=== PATIENT | male | born 1965 | race American Indian/Alaskan Native ===

== ENCOUNTER 2017-09-12 03:27 | Emergency (ER) | payer MEDICAID ==
[2017-09-12 03:27] VITALS: BMI 34.2
[2017-09-12 03:40] VITALS: BP 112/72; PULSE 89; RESP 22; TEMP 98.7; O2SAT 98
--- NOTE | 2017-09-12 04:07 | C.PDOC ---
History Of Present Illness 52 year old male presents to the ED for evaluation of left hip pain which began around 2 hours prior to arrival. Patient states he was walking up the stairs when the banister broke and caused him to fall onto his left side. Patient reports feeling pain when adding pressure to his left leg. He denies head injury , LOC, extremity numbness/weakness. Time Seen by Provider: 09/12/17 03:46 Chief Complaint (Nursing): Hip Pain History Per: Patient History/Exam Limitations: no limitations Onset/Duration Of Symptoms: Hrs (2) Current Symptoms Are (Timing): Still Present - Hip Description Of Injury: Fell Past Medical History Reviewed: Historical Data, Nursing Documentation, Vital Signs Vital Signs: Last Vital Signs Temp 98.7 F 09/12/17 03:33 Pulse 89 09/12/17 03:33 Resp 22 09/12/17 03:33 BP 112/72 09/12/17 03:33 Pulse Ox 98 09/12/17 04:07 - Medical History PMH: No Chronic Diseases Surgical History: No Surg Hx Family History: States: Unknown Family Hx - Social History Hx Alcohol Use: No Hx Substance Use: No - Immunization History Hx Tetanus Toxoid Vaccination: No Hx Influenza Vaccination: Yes (01/2017) Hx Pneumococcal Vaccination: No Review Of Systems Musculoskeletal: Positive for: Other (left hip pain ) Neurological: Negative for: Weakness, Numbness Physical Exam - Physical Exam Appears: Non-toxic, No Acute Distress Skin: Normal Color, Warm, Dry Head: Atraumatic, Normacephalic Eye(s): bilateral: Normal Inspection Oral Mucosa: Moist Neck: Supple Chest: Symmetrical, No Deformity, No Tenderness Cardiovascular: Rhythm Regular Respiratory: Normal Breath Sounds, No Accessory Muscle Use Gastrointestinal/Abdominal: Soft, No Tenderness, No Guarding, No Rebound Extremity: No Normal ROM (limited in left hip, secondary to pain ), Tenderness ( to left hip ), No Calf Tenderness (left ), Capillary Refill (less than 2 seconds ), No Other (left ankle tenderness, forshortening or external rotation of left lower extremity ) Extremity: Right: Atraumatic, Hips Non-Tender Pulses: Left Femoral: Normal, Right Femoral: Normal, Left Dorsalis Pedis: Normal , Right Dorsalis Pedis: Normal Neurological/Psych: Oriented x3, Normal Speech, Normal Cognition, Normal Motor, Normal Sensation Gait: Unable To Assess ED Course And Treatment O2 Sat by Pulse Oximetry: 98 (on RA) Pulse Ox Interpretation: Normal Medical Decision Making Medical Decision Making: Impression: 52 year old male with left hip pain s/p fall Plan: * Hip XR * Toradol IM * reassess and disposition Progress: Hip XR ordered and reviewed. Toradol IM given. Disposition - Disposition Forms: [facility] (Latvian) - Scribe Statement The provider has reviewed the documentation as recorded by the Scribe (Catie Penn) All medical record entries made by the Scribe were at my direction and personally dictated by me. I have reviewed the chart and agree that the record accurately reflects my personal performance of the history, physical exam, medical decision making, and the department course for this patient. I have also personally directed, reviewed, and agree with the discharge instructions and disposition.
--- NOTE | 2017-09-12 04:18 | C.PDOC ---
History Of Present Illness 52 year old male presents to the ED for evaluation of left hip pain which began around 2 hours prior to arrival. Patient states he was walking up the stairs when the banister broke and caused him to fall onto his left side. Patient reports feeling pain when adding pressure to his left leg. He denies head injury , LOC, neck pain, extremity numbness/weakness. Time Seen by Provider: 09/12/17 03:46 Chief Complaint (Nursing): Hip Pain History Per: Patient History/Exam Limitations: no limitations Onset/Duration Of Symptoms: Hrs (2) Current Symptoms Are (Timing): Still Present - Hip Description Of Injury: Fell Past Medical History Reviewed: Historical Data, Nursing Documentation, Vital Signs Vital Signs: Last Vital Signs Temp 98.7 F 09/12/17 03:33 Pulse 89 09/12/17 03:33 Resp 22 09/12/17 03:33 BP 112/72 09/12/17 03:33 Pulse Ox 98 09/12/17 06:50 - Medical History PMH: No Chronic Diseases Surgical History: No Surg Hx Family History: States: Unknown Family Hx - Social History Hx Alcohol Use: No Hx Substance Use: No - Immunization History Hx Tetanus Toxoid Vaccination: No Hx Influenza Vaccination: Yes (01/2017) Hx Pneumococcal Vaccination: No Review Of Systems Cardiovascular: Negative for: Chest Pain Respiratory: Negative for: Cough Musculoskeletal: Positive for: Other (left hip pain ). Negative for: Back Pain Skin: Negative for: Bruising Neurological: Negative for: Weakness, Numbness Physical Exam - Physical Exam Appears: Non-toxic, No Acute Distress Skin: Normal Color, Warm, Dry Head: Atraumatic, Normacephalic Eye(s): bilateral: Normal Inspection Oral Mucosa: Moist Neck: Supple Chest: Symmetrical, No Deformity, No Tenderness Cardiovascular: Rhythm Regular Respiratory: Normal Breath Sounds, No Accessory Muscle Use Gastrointestinal/Abdominal: Soft, No Tenderness, No Guarding, No Rebound Extremity: No Normal ROM (limited in left hip, secondary to pain ), Tenderness ( to left hip ), No Calf Tenderness (left), Capillary Refill (less than 2 seconds ), No Other (left ankle tenderness, forshortening or external rotation of left lower extremity ) Extremity: Right: Hips Non-Tender Pulses: Left Femoral: Normal, Right Femoral: Normal, Left Dorsalis Pedis: Normal , Right Dorsalis Pedis: Normal Neurological/Psych: Oriented x3, Normal Speech, Normal Cognition, Normal Sensation Gait: Unable To Assess ED Course And Treatment O2 Sat by Pulse Oximetry: 98 (on RA) Medical Decision Making Medical Decision Making: Impression: 52 year old male with left hip pain s/p fall Plan: Hip XR Toradol IM reassess and disposition Progress: Hip XR ordered and reviewed. Toradol IM given. 0545 no fx noted on xray. pt less uncomfortable after toradol. pt instructed in crutch use. d/c home with ortho and med clinic f/u Disposition Counseled Patient/Family Regarding: Studies Performed, Diagnosis, Need For Followup, Rx Given - Disposition Referrals: Melissa Natarajan MD [Staff Provider] - [facility] [Outside] Disposition: HOME/ ROUTINE Disposition Time: 06:06 Condition: IMPROVED Additional Instructions: Please use crutches to avoid full weigth bearing on left leg. Take Naproxen ( with food) as prescribed for pain. Take muscle relaxant when at home; be careful. makes you sleepy- no driving, working or operating machinery with taking it. Follow up [facility] (or in clinic) and with Dr Natarajan (othopedist). Prescriptions: Cyclobenzaprine [Cyclobenzaprine HCl] 10 mg PO Q8 #9 tab Naproxen 500 mg PO BID #20 tab Instructions: Hip Pain (DC), Groin Strain (DC) Forms: General Discharge Instructions, [facility] (Stateless), Work Excuse - Clinical Impression Clinical Impression: Contusion of hip - PA / [employer]AD [employer] / Resident Statement MD/DO has reviewed & agrees with the documentation as recorded. - Scribe Statement The provider has reviewed the documentation as recorded by the Scribe (Catie Penn) All medical record entries made by the Scribe were at my direction and personally dictated by me. I have reviewed the chart and agree that the record accurately reflects my personal performance of the history, physical exam, medical decision making, and the department course for this patient. I have also personally directed, reviewed, and agree with the discharge instructions and disposition.
--- NOTE | 2017-09-12 10:11 | RAD ---
Date of service: 09/12/2017 PROCEDURE: BILATERAL HIPS WITH PELVIS RADIOGRAPHS HISTORY: fell on steps, hit hip COMPARISON: None available. TECHNIQUE: For frontal view of the pelvis and bilateral hip joints is been submitted as well as bilateral frog-leg lateral views of the hips. FINDINGS: There is no acute fracture dislocation involving the bilateral hip joints with the pelvic ring appearing intact as well. This includes the pubic symphysis. No destructive bony lesions identified however sclerotic changes are identified at the weight-bearing portions of the bilateral hip joints and is moderate in severity with mild similar changes at the bilateral sacroiliac joints. No prominent osteophyte development. Phlebolith like calcifications are identified at the bilateral inferior pelvis soft tissues. IMPRESSION: No acute fracture or dislocation bilateral hip joints and pelvic ring. Degenerative sacroiliac and hip joint changes as discussed above.
== END 2017-09-12 06:16 | disposition home or self-care (01) ==
LOC: C.ER 03:27
DX: S70.02XA Contusion of left hip, initial encounter (principal); W10.9XXA Fall (on) (from) unspecified stairs and steps, initial encounter; Y92.9 Unspecified place or not applicable
CPT/HCPCS: 73502; 96372; 99283; J1885